=== PATIENT | female | born 1940 | race Caucasian/White ===

== ENCOUNTER 2016-10-16 05:45 | Inpatient (IN) | payer OTHER ==
[2016-11-13] MEDS ORDERED: CHLORHEXIDINE GLUC HIBICLENS 118 ML BTL TP ONE (06:00)
[2016-11-13] MEDS ORDERED: ceFAZolin 2 GM/DEXTROSE 100 ML IV ONE (06:00)
[2016-11-13] MEDS ORDERED: THROMBIN (RECOMBINANT) 5,000 UNIT VIAL TP ONE (06:41)
[2016-11-13] MEDS ORDERED: BUPIVACAINE 0.25% 30 ML SDV ONE (06:41)
[2016-11-13] MEDS ORDERED: BUPIVACAINE/EPI 0.25% 30 ML SDV ONE (06:42)
[2016-11-13] MEDS ORDERED: BACITRACIN 50,000 UNITS/10 ML SYR IRR ONE ×4 (06:42→11:41)
[2016-11-13] MEDS ORDERED: LR 1,000 ML IV ONE (06:56)
[2016-11-13] MEDS ORDERED: LIDOCAINE 1% 5 ML SDV ID PRN (06:56)
[2016-11-13] MEDS ORDERED: PROPOFOL/EMULSION 500 MG/50 ML BOTTLE IV ONE (07:52)
[2016-11-13] MEDS ORDERED: REMIFENTANIL HCL 1 MG VIAL ONE (07:52)
[2016-11-13] MEDS ORDERED: MIDAZOLAM 2 MG/2 ML VIAL ONE (07:54)
[2016-11-13] MEDS ORDERED: LIDOCAINE 2% 100 MG/5 ML SYR IVP ONE (07:57)
[2016-11-13] MEDS ORDERED: fentaNYL 100 MCG/2 ML INJ IT ONE (08:00)
[2016-11-13] MEDS ORDERED: CITRATE DEXTROSE SOLN 500 ML BAG ONE (08:25)
[2016-11-13] MEDS ORDERED: morphINE PF 5 MG/10 ML INJ IT ONE (08:30)
[2016-11-13] MEDS ORDERED: THROMBIN (RECOMBINANT) 20,000 UNIT VIAL TP ONE ×3 (09:20→10:01)
[2016-11-13] MEDS ORDERED: ALBUMIN 5% 250 ML BOTTLE IV ONE ×2 (09:29→10:17)
[2016-11-13] MEDS ORDERED: PHENYLEPHRINE HCL 100 MCG/ML SYR ONE ×2 (09:43→11:48)
[2016-11-13] MEDS ORDERED: epHEDrine SULFATE 10 MG/ML SYR ONE ×2 (09:43→12:32)
[2016-11-13 09:52] LABS: % IMMATURE GRANULYOCYTES 0.4 % (0.0-1.1); ABSOLUTE IMMATURE GRANULOCYTES 0.04 10^3/uL (0.00-0.10); ADD DIFF? NO; ADD MORPH? NO; ADD SCAN? NO; ATYPICAL LYMPHOCYTE FLAG 0 (0-99); FRAGMENT RBC FLAG 10 (0-99); HEMATOCRIT 34.6 % (38.0-47.0); HEMOGLOBIN 11.6 g/dL (12.6-16.3); LEFT SHIFT FLG 0 (0-99); LIPEMIA HEMOLYSIS FLAG 80 (0-99); MEAN CELL HEMOGLOBIN 30.2 pg (27.9-34.1); MEAN CELL HEMOGLOBIN CONCENTR. 33.5 g/dL (32.4-36.7); MEAN CELL VOLUME 90.1 fL (81.5-99.8); MEAN PLATELET VOLUME 9.6 fL (8.7-11.7); PLATELET CLUMPS FLAG 0 (0-99); PLATELET COUNT 250 10^3/uL (150-400); RED BLOOD CELL COUNT 3.84 10^6/uL (4.18-5.33); RED CELL DISTRIBUTION WIDTH 13.8 % (11.5-15.2)
[2016-11-13] MEDS ORDERED: VASOPRESSIN 20 UNIT/ML VIAL ONE (10:35)
[2016-11-13] MEDS ORDERED: morphINE PF 5 MG/10 ML INJ ONE (11:27)
[2016-11-13] MEDS ORDERED: fentaNYL 100 MCG/2 ML INJ ONE ×2 (11:28→12:20)
[2016-11-13] MEDS ORDERED: SKIN ADHESIVE (DERMABOND) 1 EACH TP ONE (12:11)
[2016-11-13] MEDS ORDERED: ONDANSETRON 4 MG/2 ML VIAL ONE (12:14)
[2016-11-13] MEDS ORDERED: DEXAMETHASONE 4 MG/ML VIAL ONE (12:14)
[2016-11-13] MEDS ORDERED: FLUTICASONE NASAL 120 SPRAYS/16 GM MDI EACHNARE PRN (12:21)
[2016-11-13] MEDS ORDERED: ALBUTEROL 60 PUFFS/8 GM MDI IH PRN (12:21)
[2016-11-13] MEDS ORDERED: MAGNESIUM HYDROXIDE 30 ML UDCUP PO PRN (12:24)
[2016-11-13] MEDS ORDERED: DIAZEPAM 10 MG/2 ML SYR IVP PRN (12:24)
[2016-11-13] MEDS ORDERED: NALOXONE HCL 0.4 MG/ML INJ IVP PRN ×2 (12:24→15:03)
[2016-11-13] MEDS ORDERED: LACTULOSE 20 GM/30 ML UDCUP PO PRN (12:24)
[2016-11-13] MEDS ORDERED: ONDANSETRON 4 MG/2 ML VIAL IVP PRN (12:24)
[2016-11-13] MEDS ORDERED: DIAZEPAM 5 MG TAB PO PRN (12:24)
[2016-11-13] MEDS ORDERED: BISACODYL 10 MG SUPP PR PRN (12:24)
[2016-11-13] MEDS ORDERED: HYDROCODONE/APAP 10/325 TAB PO PRN (12:24)
[2016-11-13] MEDS ORDERED: HYDROmorphONE/DILAUDID 6 MG/30 ML PCA IV PRN (12:24)
[2016-11-13] MEDS ORDERED: HYDROmorphONE/DILAUDID 1 MG/ML SYR IVP PRN (12:24)
[2016-11-13] MEDS ORDERED: ONDANSETRON DISINTEGRATING 4 MG TAB PO PRN (12:24)
--- NOTE | 2016-11-13 12:36 | POSTOPPROG ---
Post Op Note Date of Operation: 11/13/16 Surgeon: Trae Lozano Ice Cream Freezer Helper: Buster Anesthesiologist: Aleshia Anesthesia: GET(General Endotracheal) Pre-op Diagnosis: lumbar stenosis Post-op Diagnosis: same Indication: low back pain Procedure: hardware removal L3-S1, L1-4 fusion, L2/3 TLIF Findings: DJD/stenosis Inf/Abcess present in the surg proc area at time of surgery?: No EBL: 500-1000 (1200 ml EBL) Complications: thin dura right L2/3 Drains: Junior Dahl
--- NOTE | 2016-11-13 12:38 | SOAPPROG ---
SOAP Progress Note Assessment/Plan: Assessment: 75yo F sp L1-4 fusion with L2/3 TLIF, hardware removal L3-S1 Plan: to ICU for post op hypotension CT abd/pelvis to evaluate for retroperitoneal hemorrhage follow hg/hct hob flat with bed rest for til tomorrow am please call with neuro changes 11/13/16 12:37 Subjective: + back pain, no leg pain Objective: Microbiology 11/13/16 09:06 Gram Stain - Final Other - Eswab 11/13/16 09:06 Gram Stain - Final Other - Eswab Laboratory Results 11/13/16 09:40 somnolent PERRL, no facial droop TAWANNA x 4 ICD10 Worksheet Patient Problems: Problems Problem Status Onset Fusion of lumbar spine Acute Diabetes Acute H/O cervical spinal arthrodesis Acute Status post spinal arthrodesis Acute - ICD10 Problem Qualifiers (1) Fusion of lumbar spine
--- NOTE | 2016-11-13 13:12 | GOP ---
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 Critical spinal stenosis. Intractable left lower extremity radiculopathy and neurogenic claudication. Fail ed conservative care. High risk surgical candidate given age of 75 years, comorbidities, and requir ed surgical intervention. 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 Critica l spinal stenosis. Intractable left lower extremity radiculopathy and neurogenic claudication. Rakesh led conservative care. High risk surgical candidate given age of 75 years, comorbidities, and requi red surgical intervention. PROCEDURE PERFORMED: Removal of posterior segmental (pedicle screw) fixation from L3 through S1. R e-instrumentation from L1 through L4 with posterior segmental (pedicle screw and Axle device) fixati on. L1 through L4 posterolateral fusion with local autograft, bone morphogenic protein, and morseli zed allograft. L2-3 posterior/transforaminal lumbar interbody fusion with 2 structural PEEK interbo dy spacers, local autograft, and bone morphogenic protein. Use of intraoperative microscopy, fluoro scopy, and computer volumetric stereotactic navigation with intraoperative neurophysiologic testing. Repair of cerebrospinal fluid leak at L2-3 on the right, requiring extension of hemilaminectomy/he milaminotomy. FINDINGS: DESCRIPTION OF PROCEDURE: After informed consent was obtained, the patient was taken to the operati ng room, placed in the prone position. The lumbosacral area was prepped and draped in a sterile fas hion. After fluoroscopic localization of the correct levels, the subcutaneous and intramuscular tis sues were infiltrated with local anesthesia. A midline linear incision was then created from approx imately L2 through S1. This was carried down to the fascial layer, which was then incised using the monopolar electrocautery and carried in the subfascial plane along the spinous processes and lamina bilaterally. Intraoperative fluoroscopy again utilized to verify the correct levels. The prior in strumentation was identified, and the patient had very rigid fascia, soft tissues, and muscles. It was very difficult to achieve the lateral access required for the lateral to medial angle that the s crews had been placed in order to remove the locking caps, rods, and the pedicle screws, but eventua lly this was performed. It required more lateral dissection than normal, and there was a fair amoun t of bleeding out laterally. The anesthesiologist confirmed that the patient was stable, and there was no indication of a great vessel injury out laterally. After removal of the pedicle screws, rods , and locking caps, the microscope was brought in, and under high-power microscopic visualization, a right-sided L2-3 far lateral transfacet transpedicular decompression was performed with complete un harini of the facet joint and neural foramen at L2 and L3. A central canal decompression was also performed by angling the microscope across the midline. There was very severe stenosis, and there w as also an extensive amount of scar tissue that was more than expected, given the L3-S1 fusion prior , but the incision had extended up this high, so they clearly exposed this area. The dura was very thin over the L2-3 area, and I did see some leakage of CSF, a edgar durotomy did not occur. A singl e 4-0 Nurolon suture was placed, followed by DuraGen, and I think I got a good seal. Following this , the [employer] neuronavigational system was brought in, and using computer volumetrics and [employer] ic navigation, pedicle screws were placed at L2 and L3. The bone was both soft and brittle, and the L3 screw on the right broke out laterally. I was able to get a decent screw deeper down and left i t in place. I decided that it was in the patient's best interest to instrument down to L4 and reinf orce the fusion, but the screw broke out laterally at L4 as well. I was able to get screws down to L4 on the left with good purchase. The L2 screws were also very small and not super strong, so I re -evaluated the MRI, and there was some evidence of degeneration at that level, and the high likeliho od of adjacent level degeneration and further requirement for surgery, and given the patient's bone quality and likely future surgery, I felt that it was in her best interests to extend it up to L1 bu t not do a decompression there, and use that for a posterolateral fusion at L1-2. The exposure was carried up to there in a subperiosteal fashion and screws were placed bilaterally at L1, L2, L3, and on the left at L4. Rods were then placed and secured across the L2-3 interspace with a slight amou nt of distraction during which time a complete L2-3 diskectomy was performed with preparation of the endplates and placement of 2 structural PEEK interbody spacers, local autograft, and bone morphogen ic protein for L2-3 posterior/transforaminal lumbar interbody fusion. Following this, the wound was copiously irrigated with antibiotic irrigation and meticulous hemostasis was achieved, even though she was very oozy throughout the case from all the scar tissue and requirement for removal of the pr ior instrumentation and bone. The remaining lamina and facet joints were then extensively decortica margo at L1, L2, L3, and L4 for an L1 through L4 posterolateral fusion on the left, with an L1-2 poste rolateral fusion on the right as well, and L3-4 on the right with the residual local autograft bone morphogenic protein and morselized allograft. 200 mcg of Duramorph were injected intrathecally at t he L4-5 level through scar tissue, which was then coagulated with the bipolar cautery. Following th is, an Axle device was placed at the L1-2 level in order to hopefully prevent hardware failure and a nonunion, given the patient's weak bone screw interface and cracked pedicles. I did not think an A xle was needed at L2-3, given the interbody fusion and extension at L4 on the left. A drain was the n placed. The subcutaneous and intramuscular tissues were re-infiltrated with local anesthesia, and the wound was closed in a layered fashion using interrupted Vicryl sutures followed by Steri-Strips on the skin. DISPOSITION: The patient is currently in the process of being repositioned for extubation. /[id number]/MODL
[2016-11-13 13:23] LABS: % IMMATURE GRANULYOCYTES 1.7 % (0.0-1.1); ABSOLUTE IMMATURE GRANULOCYTES 0.19 10^3/uL (0.00-0.10); ADD DIFF? NO; ADD MORPH? NO; ADD SCAN? NO; ATYPICAL LYMPHOCYTE FLAG 20 (0-99); FRAGMENT RBC FLAG 0 (0-99); HEMATOCRIT 22.6 % (38.0-47.0); HEMOGLOBIN 7.4 g/dL (12.6-16.3); LEFT SHIFT FLG 40 (0-99); LIPEMIA HEMOLYSIS FLAG 80 (0-99); MEAN CELL HEMOGLOBIN 29.1 pg (27.9-34.1); MEAN CELL HEMOGLOBIN CONCENTR. 32.7 g/dL (32.4-36.7); MEAN PLATELET VOLUME 9.5 fL (8.7-11.7); PLATELET CLUMPS FLAG 0 (0-99); PLATELET COUNT 128 10^3/uL (150-400); RED BLOOD CELL COUNT 2.54 10^6/uL (4.18-5.33); RED CELL DISTRIBUTION WIDTH 14.5 % (11.5-15.2)
[2016-11-13 13:29] LABS: INR 1.47 (0.83-1.16); PROTIME(PATIENT) 17.8 SEC (12.0-15.0)
[2016-11-13 13:30] LABS: APTT 28.5 SEC (23.0-38.0)
[2016-11-13 13:35] LABS: ANION GAP 9 mEq/L (8-16); CALCIUM 7.1 mg/dL (8.5-10.4); CARBON DIOXIDE 21 mEq/l (22-31); CHLORIDE 109 mEq/L (97-110); CREATININE 0.5 mg/dL (0.6-1.0); GLOMERULAR FILTRATION RATE > 60; GLUCOSE 277 mg/dL (70-100); POTASSIUM 4.2 mEq/L (3.5-5.2); SODIUM 139 mEq/L (134-144)
[2016-11-13] MEDS: NS W/ 20 KCl/L 1,000 ML IV SCH (14:22)
[2016-11-13] MEDS: TAPENTADOL HCL 50 MG TAB PO PRN ×2 (14:42→18:42)
[2016-11-13] MEDS ORDERED: morphINE PCA 30 MG/30 ML PCA IV PRN (15:03)
[2016-11-13] MEDS: GABAPENTIN 300 MG CAP PO SCH ×2 (15:16→20:56)
[2016-11-13] MEDS: POLYETHYLENE GLYCOL 3350 17 GM PKT PO SCH ×2 (15:16→20:56)
--- NOTE | 2016-11-13 15:48 | GCON ---
[f rep st] CONSULTATION SLD INCLUSION TEACHER CONSULTATION. REASON FOR ADMISSION: Status post L1 through L4 fusion with a L2-3 TLIF and hardware removal L3-S1, also hypotension. HISTORY OF PRESENT ILLNESS: The patient is an extremely pleasant 75-year-old white female with a [facility] medical history of diabetes. She presents postoperatively after spine surgery. This was complic ated by blood loss as well as hypovolemia and shock. She was transfused and given IV fluids and was markedly improved. In discussion with the patient, she states that with exception of back pain she is doing quite well. She denies any chest pain, pleuritic-type chest pain or angina equivalent. N o fever or night sweats. No nausea, vomiting, or diarrhea. PAST MEDICAL HISTORY: Again, significant for diabetes. PAST SURGICAL HISTORY: She has had in 2009 a L3-S1 fusion and a C4-C7 fusion in 2013. ALLERGIES: Codeine, doxycycline, erythromycin, fentanyl. PHYSICAL EXAM: VITAL SIGNS: Blood pressure is 76/52, this has improved to 112/76. Pulse is 86, re spirations 20, temperature is 36.9, oxygen saturation 99% on 8 L. GENERAL: She is a mildly overwei ght but extremely pleasant 75-year-old white female who is resting comfortably in moderate back pain . HEENT: Eyes: KING, EOMI. Throat shows no erythema or tonsillar hypertrophy. NECK: Supple. T here is no cervical adenopathy. HEART: Regular rate and rhythm without murmurs, rubs, or gallops. LUNGS: Clear to auscultation. No wheeze or rhonchi. ABDOMEN: Soft, nontender. Bowel sounds are present. EXTREMITIES: No clubbing, cyanosis, or edema. LABORATORIES: White count is 11.3, hemoglobin 7.4, hematocrit 22, platelet count is 128, INR 1.47. Sodium 139, potassium 4.2, chloride 109, CO2 is 21, BUN 10, creatinine 0.5, glucose is 277. IMPRESSION: 1. Status post L1-L4 fusion with a L2-L3 TLIF hardware removal L3-S1. 2. Hypotension, this is hypovolemic. This has improved with hydration and transfusion. 3. History of diabetes. 4. Pain. Moderately controlled. RECOMMENDATION: 1. Close cardiovascular monitoring. 2. Follow H and H closely. 3. Await CT abdomen and pelvis results. 4. Adequate pain control. 5. Aggressive blood sugar control. /[id number]/MODL
[2016-11-13] MEDS: diphenhydrAMINE 25 MG CAP PO PRN (16:05)
[2016-11-13 16:20] LABS: HEMATOCRIT 28.2 % (38.0-47.0); HEMOGLOBIN 9.6 g/dL (12.6-16.3)
[2016-11-13] MEDS ORDERED: FAMOTIDINE 20 MG/NACL/50 ML BAG IV ONE (18:05)
[2016-11-13] MEDS: FAMOTIDINE 20 MG/NACL 50 ML IV SCH (18:06)
[2016-11-13] MEDS: DONEPEZIL HCL 5 MG TAB PO SCH (20:37)
[2016-11-13] MEDS: CYCLOSPORINE 0.05% 1 EACH BOX EACHEYE SCH (20:37)
[2016-11-13] MEDS: INSULIN 70/30 HUMAN 100 UNITS/ML SYR SC SCH (20:47)
[2016-11-13] MEDS: SENNOSIDES/DOCUSATE SODIUM TAB PO SCH (20:51)
[2016-11-13] MEDS ORDERED: morphINE SR 15 MG TAB PO SCH (21:00)
[2016-11-14 04:54] LABS: % IMMATURE GRANULYOCYTES 0.5 % (0.0-1.1); ABSOLUTE IMMATURE GRANULOCYTES 0.07 10^3/uL (0.00-0.10); ABSOLUTE NRBC COUNT 0.02 10^3/uL (0-0.01); ADD DIFF? NO; ADD MORPH? NO; ADD SCAN? NO; ATYPICAL LYMPHOCYTE FLAG 0 (0-99); FRAGMENT RBC FLAG 0 (0-99); HEMATOCRIT 27.8 % (38.0-47.0); LEFT SHIFT FLG 30 (0-99); LIPEMIA HEMOLYSIS FLAG 80 (0-99); MEAN CELL HEMOGLOBIN 29.6 pg (27.9-34.1); MEAN CELL HEMOGLOBIN CONCENTR. 32.4 g/dL (32.4-36.7); MEAN CELL VOLUME 91.4 fL (81.5-99.8); MEAN PLATELET VOLUME 10.2 fL (8.7-11.7); NRBC-AUTO% 0.1 % (0.0-0.2); PLATELET CLUMPS FLAG 0 (0-99); PLATELET COUNT 128 10^3/uL (150-400); RED BLOOD CELL COUNT 3.04 10^6/uL (4.18-5.33); RED CELL DISTRIBUTION WIDTH 14.6 % (11.5-15.2)
[2016-11-14 05:27] LABS: ANION GAP 9 mEq/L (8-16); CALCIUM 6.9 mg/dL (8.5-10.4); CARBON DIOXIDE 18 mEq/l (22-31); CHLORIDE 111 mEq/L (97-110); CREATININE 1.2 mg/dL (0.6-1.0); GLOMERULAR FILTRATION RATE 44; GLUCOSE 115 mg/dL (70-100); POTASSIUM 4.6 mEq/L (3.5-5.2); SODIUM 138 mEq/L (134-144)
[2016-11-14] MEDS: VENLAFAXINE XR 75 MG CAP PO SCH (09:11)
[2016-11-14] MEDS: diphenhydrAMINE 25 MG CAP PO PRN (09:11)
[2016-11-14] MEDS: ALLOPURINOL 100 MG TAB PO SCH (09:11)
[2016-11-14] MEDS: ENOXAPARIN 40 MG/0.4 ML SYR SC SCH (09:11)
[2016-11-14] MEDS: GABAPENTIN 300 MG CAP PO SCH ×3 (09:12→21:28)
[2016-11-14] MEDS: SENNOSIDES/DOCUSATE SODIUM TAB PO SCH ×2 (09:12→21:28)
[2016-11-14] MEDS: ATORVASTATIN CALCIUM 20 MG TAB PO SCH (09:12)
[2016-11-14] MEDS: PANTOPRAZOLE SODIUM 40 MG TAB PO SCH (09:12)
[2016-11-14] MEDS: POLYETHYLENE GLYCOL 3350 17 GM PKT PO SCH ×3 (09:12→21:29)
[2016-11-14] MEDS: CYCLOSPORINE 0.05% 1 EACH BOX EACHEYE SCH ×2 (09:13→21:32)
[2016-11-14] MEDS: FAMOTIDINE 20 MG/NACL 50 ML IV SCH (09:13)
--- NOTE | 2016-11-14 09:29 | SOAPPROG ---
SOAP Progress Note Assessment/Plan: Assessment: 75 yo female POD #1. HOB flat overnight due to thin dura. OK to sit HOB this AM Continue GLORIA to NO Suction Plan: HOB up today Advance activity as tolerated Continue GLORIA Discussed with Dr. Hicks 11/14/16 09:26 Subjective: asleep, wakes easily and reports good paint control. Objective: Vital Signs Temp Pulse Resp BP Pulse Ox 36.7 C 104 H 12 115/59 L 94 11/13/16 20:00 11/14/16 06:00 11/14/16 06:00 11/14/16 06:00 11/14/16 06:00 Microbiology 11/13/16 09:06 Gram Stain - Final Other - Eswab 11/13/16 09:06 Gram Stain - Final Other - Eswab Laboratory Results 11/14/16 04:25 11/14/16 04:25 11/13/16 11/14/16 11/15/16 05:59 05:59 05:59 Intake Total 6675 Output Total 2325 Balance 4350 PT 17.8 SEC (12.0-15.0) H 11/13/16 13:06 INR 1.47 (0.83-1.16) H 11/13/16 13:06 Neuro: GIVENS, Sens +LT GLORIA: 200ml ICD10 Worksheet Patient Problems: Problems Problem Status Onset Fusion of lumbar spine Acute Diabetes Acute H/O cervical spinal arthrodesis Acute Status post spinal arthrodesis Acute
[2016-11-14] MEDS: INSULIN 70/30 HUMAN 100 UNITS/ML SYR SC SCH ×2 (09:55→21:57)
[2016-11-14] MEDS ORDERED: NALOXONE HCL 0.4 MG/ML INJ IVP PRN (10:57)
[2016-11-14] MEDS ORDERED: HYDROmorphONE/DILAUDID 6 MG/30 ML PCA IV PRN (10:57)
[2016-11-14] MEDS: HYDROCODONE/APAP 10/325 TAB PO PRN ×2 (12:05→16:05)
--- NOTE | 2016-11-14 12:13 | PDINTPN ---
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 Subjective: Resting comfortably Objective: Vital Signs Temp Pulse Resp BP Pulse Ox 36.7 C 104 H 12 115/59 L 94 11/13/16 20:00 11/14/16 06:00 11/14/16 06:00 11/14/16 06:00 11/14/16 06:00 Microbiology 11/13/16 09:06 Gram Stain - Final Other - Eswab 11/13/16 09:06 Gram Stain - Final Other - Eswab Laboratory Results 11/14/16 04:25 11/14/16 04:25 11/13/16 11/14/16 11/15/16 05:59 05:59 05:59 Intake Total 6675 Output Total 2325 Balance 4350 PT 17.8 SEC (12.0-15.0) H 11/13/16 13:06 INR 1.47 (0.83-1.16) H 11/13/16 13:06 Physical Exam - Physical Exam General Appearance: alert, no apparent distress EENT: PERRL/EOMI, normal ENT inspection Neck: non-tender, full range of motion, supple, normal inspection Respiratory: chest non-tender, lungs clear, normal breath sounds Cardiac/Chest: normal peripheral pulses, regular rate, rhythm Peripheral Pulses: 2+: carotid (R), carotid (L), femoral (R), femoral (L), dorsalis-pedis (R), dorsalis-pedis (L) Abdomen: normal bowel sounds, non-tender, soft Pelvic Exam: deferred Rectal: deferred Skin: normal color, warm/dry ICD10 Worksheet Patient Problems: Problems Problem Status Onset Fusion of lumbar spine Acute Diabetes Acute H/O cervical spinal arthrodesis Acute Status post spinal arthrodesis Acute
[2016-11-14] MEDS: METHOCARBAMOL 750 MG TAB PO PRN (16:05)
[2016-11-14] MEDS: DONEPEZIL HCL 5 MG TAB PO SCH (21:27)
[2016-11-14] MEDS: NS W/ 20 KCl/L 1,000 ML IV SCH (21:27)
[2016-11-14] MEDS: morphINE SR 15 MG TAB PO SCH (21:28)
[2016-11-15] MEDS: FAMOTIDINE 20 MG/NACL 50 ML IV SCH ×2 (02:11→11:05)
[2016-11-15] MEDS: HYDROCODONE/APAP 10/325 TAB PO PRN ×2 (04:24→14:52)
[2016-11-15] MEDS: INSULIN 70/30 HUMAN 100 UNITS/ML SYR SC SCH ×2 (09:12→21:47)
[2016-11-15] MEDS: ACETAMINOPHEN 325 MG TAB PO PRN (09:12)
[2016-11-15] MEDS: VENLAFAXINE XR 75 MG CAP PO SCH (09:13)
[2016-11-15] MEDS: GABAPENTIN 300 MG CAP PO SCH ×3 (09:13→21:37)
[2016-11-15] MEDS: ALLOPURINOL 100 MG TAB PO SCH (09:13)
[2016-11-15] MEDS: ATORVASTATIN CALCIUM 20 MG TAB PO SCH (09:14)
[2016-11-15] MEDS: PANTOPRAZOLE SODIUM 40 MG TAB PO SCH (09:14)
[2016-11-15] MEDS: morphINE SR 15 MG TAB PO SCH ×2 (09:14→21:35)
[2016-11-15] MEDS: ENOXAPARIN 40 MG/0.4 ML SYR SC SCH (09:14)
[2016-11-15] MEDS: SENNOSIDES/DOCUSATE SODIUM TAB PO SCH ×2 (09:14→21:37)
[2016-11-15] MEDS: POLYETHYLENE GLYCOL 3350 17 GM PKT PO SCH ×3 (09:20→21:38)
[2016-11-15] MEDS: CYCLOSPORINE 0.05% 1 EACH BOX EACHEYE SCH ×2 (09:21→21:45)
[2016-11-15] MEDS: FAMOTIDINE 20 MG TAB PO SCH ×2 (09:22→21:38)
--- NOTE | 2016-11-15 13:22 | NEUSURGPN ---
Assessment/Plan: Assessment: 75 yo female POD #3 NO headaches with raise of HOB Has productive cough this am Had some confusion with narcotics now clearing Continue GLORIA to NO Suction- will remove in am tomorrow Plan: Advance activity as tolerated- encourage IS and OOB CXR ordered due to productive cough Continue GLORIA PT/OT DVT: TEDs, SCDs, Discussed with Dr. Hicks 11/14/16 09:26 Subjective: Patient has severe back pain this morning spasms mostly. Has productive cough. Denies cp, sob, dyspnea. Objective: Patient resting in bed, VSS Alert and oriented Productive cough BLE 5/= Incision c/d/i-dressed GLORIA with 135 output in last 24- no suction-serosang Catheter Insertion Date: 11/13/16 - Physician Discussed Patient with : [facility] Physical Exam - Vitals, I&O, Labs I and O 11/14/16 11/15/16 11/16/16 05:59 05:59 05:59 Intake Total 6675 1650 Output Total 2325 885 100 Balance 4350 765 -100 Weight 65.317 kg Intake: Oral (ml) 1100 500 IV Intake (ml) 3300 550 IV Infused (ml) 1196 600 NS W/ 20 KCl/L 1,000 ml @ 1196 600 75 mls/hr IV CONT SYLVIA Rx #:[id number] Autologous Blood (ml) 540 Fresh Frozen Plasma (ml) 289 Packed Red Blood Cells ( 250 ml) Output: Urine (ml) 925 850 Catheter 925 850 Estimated Blood Loss (ml) 1200 Wound Drainage (ml) 200 35 100 Back Junior Dahl 200 35 100 Other: Intake Quantity Yes Sufficient Output Comment Catheter Straight Cath Number of Voids Incontinence 1 Bladder Scan Volume (ml) Catheter 600 Microbiology 11/13/16 09:06 Gram Stain - Final Other - Eswab 11/13/16 09:06 Gram Stain - Final Other - Eswab Vital Signs Temp Pulse Resp BP Pulse Ox 36.9 C 89 16 91/53 L 94 11/15/16 12:00 11/15/16 12:00 11/15/16 12:00 11/15/16 12:00 11/15/16 12:00 Laboratory Results 11/14/16 04:25 11/14/16 04:25 ICD10 Worksheet Patient Problems: Problems Problem Status Onset Fusion of lumbar spine Acute Diabetes Acute H/O cervical spinal arthrodesis Acute Status post spinal arthrodesis Acute
[2016-11-15] MEDS: METHOCARBAMOL 750 MG TAB PO PRN (14:52)
[2016-11-15] MEDS: DONEPEZIL HCL 5 MG TAB PO SCH (21:37)
[2016-11-16 04:15] LABS: COLOR YELLOW; LEUKOCYTE ESTERASE,URINE NEGATIVE (NEGATIVE); NITRITE,URINE NEGATIVE (NEGATIVE)
[2016-11-16] MEDS: ACETAMINOPHEN 325 MG TAB PO PRN (08:14)
[2016-11-16] MEDS: SENNOSIDES/DOCUSATE SODIUM TAB PO SCH ×2 (08:15→20:24)
[2016-11-16] MEDS: morphINE SR 15 MG TAB PO SCH ×2 (08:15→20:23)
[2016-11-16] MEDS: VENLAFAXINE XR 75 MG CAP PO SCH (08:15)
[2016-11-16] MEDS: GABAPENTIN 300 MG CAP PO SCH ×3 (08:15→21:52)
[2016-11-16] MEDS: PANTOPRAZOLE SODIUM 40 MG TAB PO SCH (08:15)
[2016-11-16] MEDS: ATORVASTATIN CALCIUM 20 MG TAB PO SCH (08:16)
[2016-11-16] MEDS: POLYETHYLENE GLYCOL 3350 17 GM PKT PO SCH ×3 (08:16→21:53)
[2016-11-16] MEDS: ENOXAPARIN 40 MG/0.4 ML SYR SC SCH (08:16)
[2016-11-16] MEDS: FAMOTIDINE 20 MG TAB PO SCH ×2 (08:16→20:23)
[2016-11-16] MEDS: ALLOPURINOL 100 MG TAB PO SCH (08:16)
[2016-11-16] MEDS: INSULIN 70/30 HUMAN 100 UNITS/ML SYR SC SCH ×2 (09:29→20:25)
[2016-11-16] MEDS: CYCLOSPORINE 0.05% 1 EACH BOX EACHEYE SCH ×2 (09:30→20:29)
--- NOTE | 2016-11-16 14:42 | NEUSURGPN ---
Assessment/Plan: Assessment: 75 yo female POD #4 NO headaches with raise of HOB Has productive cough still- Negative CXR for Pneumonia Had some continued confusion this morning- will decrease narcotics Plan: Patient continues to be somewhat confused, waxes and wanes throughout day. Asked RN to minimize narcotics today. CXR ordered due to productive cough- Negative for pneumonia Continue GLORIA PT/OT-Patient needs to be out of bed! Has not really been out of bed at all. Needs encouragement to be up in chair, using IS, advancing activity DVT: TEDs, SCDs,Lovenox Discussed with Dr. Hicks 11/14/16 09:26 Subjective: Patient states legs "hurt", and back "hurts", having cough still but denies fever, chills, pleuritic chest pain. States she hasn't been out of bed much. No BM. Objective: NAD, VSS Alert to person, place, not to year when first asked, and seems confused on what is being asked Following commands PERRL, EOMI CN II-XII grossly intact Productive cough, normal work of breathing BLE 5/5= Incision c/d/i GLORIA to no suction- to be removed this am Catheter Insertion Date: 11/16/16 - Physician Discussed Patient with : [facility] Physical Exam - Vitals, I&O, Labs I and O 11/15/16 11/16/16 11/17/16 05:59 05:59 05:59 Intake Total 1650 750 350 Output Total 885 870 Balance 765 -120 350 Intake: Oral (ml) 500 750 350 IV Intake (ml) 550 IV Infused (ml) 600 NS W/ 20 KCl/L 1,000 ml @ 600 75 mls/hr IV CONT SYLVIA Rx #:[id number] Output: Urine (ml) 850 750 Catheter 850 750 Wound Drainage (ml) 35 120 Back Junior Dahl 35 120 Other: Intake Quantity Yes Sufficient Output Comment Catheter Straight Cath Number of Voids Incontinence 1 Bladder Scan Volume (ml) Catheter 600 550 Incontinence 233 Microbiology 11/13/16 09:06 Gram Stain - Final Other - Eswab 11/13/16 09:06 Gram Stain - Final Other - Eswab Vital Signs Temp Pulse Resp BP Pulse Ox 36.9 C 84 16 104/51 L 99 11/16/16 13:47 11/16/16 13:47 11/16/16 13:47 11/16/16 13:47 11/16/16 13:47 Laboratory Results 11/14/16 04:25 11/14/16 04:25 ICD10 Worksheet Patient Problems: Problems Problem Status Onset Fusion of lumbar spine Acute Diabetes Acute H/O cervical spinal arthrodesis Acute Status post spinal arthrodesis Acute
[2016-11-16] MEDS: DONEPEZIL HCL 5 MG TAB PO SCH (20:23)
[2016-11-17] MEDS: ACETAMINOPHEN 325 MG TAB PO PRN ×3 (00:22→16:07)
--- NOTE | 2016-11-17 08:15 | NEUSURGPN ---
Assessment/Plan: Assessment: 75 yo female POD #5 NO headaches with raise of HOB Has productive cough still- Negative CXR for Pneumonia Plan: Encourage patient OOB Continue GLORIA PT/OT-Patient needs to be out of bed! Has not really been out of bed at all. Needs encouragement to be up in chair, using IS, advancing activity DVT: TEDs, SCDs,Lovenox Discussed with Dr. Hicks Subjective: low back pain. Denies any leg pain, numbness, tingling or weakness. Objective: NAD A&Ox3 MAEx4. diffusely 5-/5 throughout with poor effort. Incision c/d/i Catheter Insertion Date: 11/16/16 - Physician Discussed Patient with DrMigdalia: [facility] Physical Exam - Vitals, I&O, Labs I and O 11/16/16 11/17/16 11/18/16 05:59 05:59 05:59 Intake Total 750 650 Output Total 870 650 Balance -120 0 Intake: Oral (ml) 750 650 Output: Urine (ml) 750 650 Catheter 750 650 Wound Drainage (ml) 120 Back Junior Dahl 120 Other: Number of Stools Catheter 1 Bladder Scan Volume (ml) Catheter 550 Incontinence 233 Microbiology 11/13/16 09:06 Gram Stain - Final Other - Eswab 11/13/16 09:06 Gram Stain - Final Other - Eswab Vital Signs Temp Pulse Resp BP Pulse Ox 36.6 C 75 14 99/50 L 99 11/17/16 07:41 11/17/16 07:41 11/17/16 07:41 11/17/16 07:41 11/17/16 07:41 Laboratory Results 11/14/16 04:25 11/14/16 04:25 ICD10 Worksheet Patient Problems: Problems Problem Status Onset Fusion of lumbar spine Acute Diabetes Acute H/O cervical spinal arthrodesis Acute Status post spinal arthrodesis Acute
[2016-11-17] MEDS: ATORVASTATIN CALCIUM 20 MG TAB PO SCH (09:39)
[2016-11-17] MEDS: INSULIN 70/30 HUMAN 100 UNITS/ML SYR SC SCH ×2 (09:39→20:06)
[2016-11-17] MEDS: PANTOPRAZOLE SODIUM 40 MG TAB PO SCH (09:39)
[2016-11-17] MEDS: FAMOTIDINE 20 MG TAB PO SCH ×2 (09:39→20:04)
[2016-11-17] MEDS: VENLAFAXINE XR 75 MG CAP PO SCH (09:39)
[2016-11-17] MEDS: ALLOPURINOL 100 MG TAB PO SCH (09:39)
[2016-11-17] MEDS: GABAPENTIN 300 MG CAP PO SCH ×3 (09:39→21:46)
[2016-11-17] MEDS: METHOCARBAMOL 750 MG TAB PO PRN ×2 (09:40→16:07)
[2016-11-17] MEDS: ENOXAPARIN 40 MG/0.4 ML SYR SC SCH (09:40)
[2016-11-17] MEDS: CYCLOSPORINE 0.05% 1 EACH BOX EACHEYE SCH ×2 (09:45→20:07)
[2016-11-17] MEDS: morphINE SR 15 MG TAB PO SCH (10:34)
[2016-11-17] MEDS: POLYETHYLENE GLYCOL 3350 17 GM PKT PO SCH ×3 (10:34→20:14)
[2016-11-17] MEDS: SENNOSIDES/DOCUSATE SODIUM TAB PO SCH ×2 (10:35→20:13)
[2016-11-17] MEDS: DONEPEZIL HCL 5 MG TAB PO SCH (20:04)
[2016-11-18] MEDS: ACETAMINOPHEN 325 MG TAB PO PRN ×2 (00:13→09:35)
[2016-11-18] MEDS: INSULIN 70/30 HUMAN 100 UNITS/ML SYR SC SCH ×2 (09:34→22:28)
[2016-11-18] MEDS: ENOXAPARIN 40 MG/0.4 ML SYR SC SCH (09:34)
[2016-11-18] MEDS: GABAPENTIN 300 MG CAP PO SCH ×3 (09:35→22:27)
[2016-11-18] MEDS: METHOCARBAMOL 750 MG TAB PO PRN ×3 (09:35→20:09)
[2016-11-18] MEDS: ALLOPURINOL 100 MG TAB PO SCH (09:35)
[2016-11-18] MEDS: ATORVASTATIN CALCIUM 20 MG TAB PO SCH (09:35)
[2016-11-18] MEDS: VENLAFAXINE XR 75 MG CAP PO SCH (09:35)
[2016-11-18] MEDS: FAMOTIDINE 20 MG TAB PO SCH ×2 (09:35→20:09)
[2016-11-18] MEDS: PANTOPRAZOLE SODIUM 40 MG TAB PO SCH (09:35)
[2016-11-18] MEDS: POLYETHYLENE GLYCOL 3350 17 GM PKT PO SCH ×3 (09:36→19:57)
[2016-11-18] MEDS: SENNOSIDES/DOCUSATE SODIUM TAB PO SCH ×2 (09:36→20:04)
[2016-11-18] MEDS: CYCLOSPORINE 0.05% 1 EACH BOX EACHEYE SCH ×2 (09:36→20:14)
--- NOTE | 2016-11-18 10:09 | SOAPPROG ---
SOAP Progress Note Assessment/Plan: Assessment: 75 yo female POD #5. Ongoing LBP limiting mobility productive cough. Last CXR on Confusion overnight. Pt is sensative to narcotics Plan: CXR repeat today. OOB and ambulating TID. Advance activity as tolerated Subjective: awake, alert, complains of pain "everywhere." Confusion overnight now resolved Objective: Vital Signs Temp Pulse Resp BP Pulse Ox 36.4 C 79 15 127/68 H 99 11/18/16 07:27 11/18/16 07:27 11/18/16 07:27 11/18/16 07:27 11/18/16 07:27 Microbiology 11/13/16 09:06 Gram Stain - Final Other - Eswab 11/13/16 09:06 Gram Stain - Final Other - Eswab Laboratory Results 11/14/16 04:25 11/14/16 04:25 11/17/16 11/18/16 11/19/16 05:59 05:59 05:59 Intake Total 650 Output Total 650 1000 Balance 0 -1000 PT 17.8 SEC (12.0-15.0) H 11/13/16 13:06 INR 1.47 (0.83-1.16) H 11/13/16 13:06 Neuro: oriented x4 GIVENS, Sens + LT Dressing: CDI no GLORIA ICD10 Worksheet Patient Problems: Problems Problem Status Onset Fusion of lumbar spine Acute Diabetes Acute H/O cervical spinal arthrodesis Acute Status post spinal arthrodesis Acute
[2016-11-18] MEDS ORDERED: HYDROmorphONE/DILAUDID 2 MG TAB PO PRN (10:15)
[2016-11-18] MEDS: ACETAMINOPHEN 500 MG TAB PO SCH ×2 (14:04→22:26)
[2016-11-18] MEDS ORDERED: D50W 25 GM/50 ML SYR IVP PRN (16:26)
[2016-11-18 16:58] LABS: % IMMATURE GRANULYOCYTES 1.6 % (0.0-1.1); ABSOLUTE IMMATURE GRANULOCYTES 0.14 10^3/uL (0.00-0.10); ABSOLUTE NRBC COUNT 0.13 10^3/uL (0-0.01); ADD DIFF? NO; ADD MORPH? YES; ADD SCAN? NO; ATYPICAL LYMPHOCYTE FLAG 40 (0-99); FRAGMENT RBC FLAG 0 (0-99); HEMOGLOBIN 8.3 g/dL (12.6-16.3); LEFT SHIFT FLG 30 (0-99); LIPEMIA HEMOLYSIS FLAG 80 (0-99); MEAN CELL HEMOGLOBIN 29.4 pg (27.9-34.1); MEAN CELL HEMOGLOBIN CONCENTR. 33.2 g/dL (32.4-36.7); MEAN CELL VOLUME 88.7 fL (81.5-99.8); MEAN PLATELET VOLUME 10.1 fL (8.7-11.7); PLATELET CLUMPS FLAG 0 (0-99); PLATELET COUNT 206 10^3/uL (150-400); RED BLOOD CELL COUNT 2.82 10^6/uL (4.18-5.33); RED CELL DISTRIBUTION WIDTH 14.2 % (11.5-15.2)
[2016-11-18 16:59] LABS: NRBC-AUTO% 1.5 % (0.0-0.2)
--- NOTE | 2016-11-18 17:34 | GCON ---
[f rep st] CONSULTATION DATE OF CONSULTATION: 11/18/2016 REFERRING PHYSICIAN: Trae Lozano MD REASON FOR CONSULTATION: I was asked by Dr. Lozano to see this patient in regard to cough an d abnormal chest x-ray. HISTORY OF PRESENT ILLNESS: This is a 75-year-old female who is now postoperative day #5 status pos t lumbar procedure. She tells me that she has been coughing since the surgery. It is productive of sputum. She hurts all over. It is unclear whether this is myalgias or pain from her lumbar surger y. She had a T-max of 37.9 on the 18th, which was 2 days postoperative. She has not had any wheezi ng, does not feel short of breath. She has no underlying lung disease. Has never had a pneumonia b efore. Does not have COPD, no asthma. She received the influenza vaccine this year. Her main comp laint is her back pain. PAST MEDICAL/SURGICAL HISTORY: 1. Diabetes mellitus, on insulin. 2. History of low back fusion, status post recent revision. MEDICATIONS: Home medications include Aricept, gabapentin, omeprazole, Effexor, albuterol, cyclospo rine, NovoLog, fluticasone, insulin, allopurinol. ALLERGIES: Codeine, doxycycline, erythromycin, fentanyl, nystatin, quinine, tetracycline. FAMILY HISTORY: Diabetes. SOCIAL HISTORY: She quit drinking about 20 years ago. She quit smoking tobacco in her 30s. REVIEW OF SYSTEMS: Ten-point review of systems is conducted and is negative, except per HPI. PHYSICAL EXAM: VITAL SIGNS: Blood pressure is 105/53, heart rate is 81, respiration rate is 15, sa tting 95% on 3 L, temperature is 37.1. GENERAL: The patient is a pleasant female who is lying on h er side, appears mildly uncomfortable, otherwise in no acute distress. HEENT: Shows her mucous mem branes to be moist. CARDIOVASCULAR: Regular rate and rhythm. No murmurs, rubs, or gallops. PULMO NARY: Shows her lungs to be clear to auscultation bilaterally. She is not in any respiratory distr ess. ABDOMEN: Soft, nontender, nondistended. SKIN: No rash. : Thornton in place. NEUROLOGIC: She is alert and oriented x3. She is nonfocal. PSYCHIATRIC: Normal mood and affect. LABS: Reviewed her labs, last were drawn on the . Her white count was 14.28, this was 77% neut rophils. Platelets are 128. Recent blood sugars are noted. Urinalysis on the showed trace ket ones. DATA: 1. I reviewed her chart. 2. I personally viewed and interpreted her chest x-ray. This shows predominant interstitial markin gs, which are new since the . IMPRESSION AND PLAN: A 75-year-old female with cough and interstitial infiltrates on her chest x-ra y. 1. Pulmonary: Suspect this may be influenza. This has been ordered. I have also ordered a full s et of labs. If this is negative, will treat her for a bacterial bronchitis versus pneumonitis. Wou ld order additional testing at that point, including Legionella sputum culture. She is not in any r espiratory distress at this point. 2. Diabetes mellitus type 2: She had some fasting borderline hypoglycemia this morning. I note th at she is on 70/30 insulin. I have decreased her 70/30 dose and will add some sliding scale lispro to give her better coverage throughout the day. 3. Recent lumbar revision: Per Neurosurgery. Thank you for involving Hospital Medicine in the care of this patient. We will continue to follow w reina you. /[id number]/MODL
[2016-11-18 17:46] LABS: MACROCYTES 1+; MICROCYTES 1+; PLATELET ESTIMATE ADEQUATE (ADEQ); POLYCHROMASIA 1+
[2016-11-18] MEDS: INSULIN LISPRO 100 UNIT/ML SC SCH (18:04)
[2016-11-18 18:32] LABS: ANION GAP 6 mEq/L (8-16); CALCIUM 8.6 mg/dL (8.5-10.4); CARBON DIOXIDE 30 mEq/l (22-31); CHLORIDE 96 mEq/L (97-110); CREATININE 0.5 mg/dL (0.6-1.0); GLOMERULAR FILTRATION RATE > 60; GLUCOSE 174 mg/dL (70-100); POTASSIUM 3.9 mEq/L (3.5-5.2); SODIUM 132 mEq/L (134-144)
[2016-11-18] MEDS: DONEPEZIL HCL 5 MG TAB PO SCH (20:09)
[2016-11-18] MEDS: AZITHROMYCIN 250 MG TAB PO SCH (20:09)
[2016-11-19] MEDS: METHOCARBAMOL 750 MG TAB PO PRN ×2 (03:43→12:59)
--- NOTE | 2016-11-19 07:37 | SOAPPROG ---
SOAP Progress Note Assessment/Plan: Assessment: 75 yo female POD #6. Ongoing LBP limiting mobility productive cough - better today per pt. Hospitalists assisting with this issue now. Flu serology negative Pt feels cough is better today Neuro stable consider removing sherman Plan: Encourage out of bed and ambulation with assist will discuss Sherman with Dr. Lozano Subjective: lying in bed, comfortable, but complains of "stiffness" She feels like her cough is improved today Objective: Vital Signs Temp Pulse Resp BP Pulse Ox 37.2 C 74 16 114/64 97 11/19/16 00:00 11/19/16 00:00 11/19/16 00:00 11/19/16 00:00 11/19/16 00:00 Microbiology 11/13/16 09:06 Gram Stain - Final Other - Eswab 11/13/16 09:06 Gram Stain - Final Other - Eswab Laboratory Results 11/18/16 16:45 11/18/16 17:30 11/18/16 11/19/16 11/20/16 05:59 05:59 05:59 Intake Total 450 Output Total 1000 1950 Balance -1000 -1500 PT 17.8 SEC (12.0-15.0) H 11/13/16 13:06 INR 1.47 (0.83-1.16) H 11/13/16 13:06 Neuro: GIVENS, sens +LT follows commands A+Ox4 dressing :CDI ICD10 Worksheet Patient Problems: Problems Problem Status Onset Fusion of lumbar spine Acute Diabetes Acute H/O cervical spinal arthrodesis Acute Status post spinal arthrodesis Acute
[2016-11-19] MEDS: ENOXAPARIN 40 MG/0.4 ML SYR SC SCH (07:51)
[2016-11-19] MEDS: ACETAMINOPHEN 500 MG TAB PO SCH ×3 (07:53→21:05)
[2016-11-19] MEDS: GABAPENTIN 300 MG CAP PO SCH ×3 (07:55→21:05)
[2016-11-19] MEDS: PANTOPRAZOLE SODIUM 40 MG TAB PO SCH (07:55)
[2016-11-19] MEDS: VENLAFAXINE XR 75 MG CAP PO SCH (07:55)
[2016-11-19] MEDS: ATORVASTATIN CALCIUM 20 MG TAB PO SCH (07:55)
[2016-11-19] MEDS: FAMOTIDINE 20 MG TAB PO SCH ×2 (07:55→19:33)
[2016-11-19] MEDS: AZITHROMYCIN 250 MG TAB PO SCH (07:56)
[2016-11-19] MEDS: CYCLOSPORINE 0.05% 1 EACH BOX EACHEYE SCH ×2 (07:56→19:33)
[2016-11-19] MEDS: ALLOPURINOL 100 MG TAB PO SCH (07:57)
[2016-11-19] MEDS: INSULIN LISPRO 100 UNIT/ML SC SCH ×3 (08:11→18:11)
[2016-11-19] MEDS: POLYETHYLENE GLYCOL 3350 17 GM PKT PO SCH ×3 (08:11→21:06)
[2016-11-19] MEDS: SENNOSIDES/DOCUSATE SODIUM TAB PO SCH ×2 (08:11→21:06)
--- NOTE | 2016-11-19 10:26 | HOSPPROG ---
Hospitalist Progress Note Assessment/Plan: Patient is a 75-year-old female who recently underwent a lumbar procedure. She has been having coughing bouts since surgery. She says that she hurts all over. Today is my 1st encounter with the patient. Chart reviewed. Reviewed her care w Otis Chaparro PA/ w neurosurgery. #. Hypoxemia with associated bronchitis versus pneumonitis - chest x-ray shows predominant interstitial markings - she was requiring 3 L of oxygen today - negative for influenza - being treated with azithromycin -she is feeling much better today #. hyponatremia - mild #. anemia -post op setting #. right hip pain/ significant soft tissue swelling and pain with touch to the gluteus -get a CT to further evaluate/ ?hematoma #. postop day 6. status post a lumbar fusion #. diabetes type 2 - had some hypoglycemia. Her 70 /30 dose has been decreased #. urinary retention -patient says she is unable to void without catheter -once pain improves, a trial should be done #. dvt prophylaxis: LMWH Subjective: Kaci is not having back pain but ongoing right hip/ gluteus pain. Objective: Vital Signs Temp Pulse Resp BP Pulse Ox 36.8 C 75 16 113/66 94 11/19/16 07:45 11/19/16 07:45 11/19/16 07:45 11/19/16 07:45 11/19/16 07:45 Microbiology 11/13/16 09:06 Gram Stain - Final Other - Eswab 11/13/16 09:06 Gram Stain - Final Other - Eswab Laboratory Results 11/18/16 16:45 11/18/16 17:30 11/18/16 11/19/16 11/20/16 05:59 05:59 05:59 Intake Total 450 Output Total 1000 1950 Balance -1000 -1500 PT 17.8 SEC (12.0-15.0) H 11/13/16 13:06 INR 1.47 (0.83-1.16) H 11/13/16 13:06 - Physical Exam Constitutional: uncomfortable, No not in pain Eyes: PERRL Ears, Nose, Mouth, Throat: hearing normal Cardiovascular: regular rate and rhythym Respiratory: no respiratory distress Gastrointestinal: normoactive bowel sounds Skin: warm, other (lumbar area w dressing in place/ right hip area and r glutus area with ecchymosis/ slightly firm are palpated on right gluteus) Musculoskeletal: generalized weakness Neurologic: AAOx3 Psychiatric: anxious ICD10 Worksheet Patient Problems: Problems Problem Status Onset Fusion of lumbar spine Acute Diabetes Acute H/O cervical spinal arthrodesis Acute Status post spinal arthrodesis Acute
[2016-11-19] MEDS: INSULIN 70/30 HUMAN 100 UNITS/ML SYR SC SCH ×2 (11:00→21:06)
[2016-11-19] MEDS ORDERED: LOPERAMIDE HCL 1 MG/5 ML UDCUP PO ONE (12:25)
[2016-11-19] MEDS: LIDOCAINE 5% 1 EA PATCH TD SCH (12:49)
[2016-11-19] MEDS ORDERED: IOPAMIDOL (ISOVUE-300) 100 ML BTL IV ONE (16:55)
[2016-11-19] MEDS: DONEPEZIL HCL 5 MG TAB PO SCH (19:33)
[2016-11-19] MEDS ORDERED: PATCH REMOVAL 1 EA PATCH TD SCH (21:00)
[2016-11-19 23:34] VITALS: PULSE 76; RESP 16; O2SAT 96
[2016-11-20] MEDS: METHOCARBAMOL 750 MG TAB PO PRN (03:32)
[2016-11-20] MEDS: ACETAMINOPHEN 500 MG TAB PO SCH ×2 (05:15→14:21)
[2016-11-20 05:43] LABS: ABSOLUTE NRBC COUNT 0.09 10^3/uL (0-0.01); ADD DIFF? YES; ADD MORPH? YES; ADD SCAN? NO; ATYPICAL LYMPHOCYTE FLAG 40 (0-99); FRAGMENT RBC FLAG 0 (0-99); HEMATOCRIT 25.1 % (38.0-47.0); LEFT SHIFT FLG 20 (0-99); LIPEMIA HEMOLYSIS FLAG 80 (0-99); MEAN CELL HEMOGLOBIN 28.8 pg (27.9-34.1); MEAN CELL HEMOGLOBIN CONCENTR. 31.9 g/dL (32.4-36.7); MEAN CELL VOLUME 90.3 fL (81.5-99.8); MEAN PLATELET VOLUME 9.8 fL (8.7-11.7); PLATELET CLUMPS FLAG 0 (0-99); PLATELET COUNT 268 10^3/uL (150-400); RED BLOOD CELL COUNT 2.78 10^6/uL (4.18-5.33); RED CELL DISTRIBUTION WIDTH 14.5 % (11.5-15.2)
[2016-11-20 05:46] LABS: NRBC-AUTO% 1.2 % (0.0-0.2)
[2016-11-20 05:57] LABS: ANION GAP 6 mEq/L (8-16); CALCIUM 8.3 mg/dL (8.5-10.4); CARBON DIOXIDE 30 mEq/l (22-31); CHLORIDE 101 mEq/L (97-110); CREATININE 0.5 mg/dL (0.6-1.0); GLOMERULAR FILTRATION RATE > 60; GLUCOSE 78 mg/dL (70-100); POTASSIUM 3.4 mEq/L (3.5-5.2); SODIUM 137 mEq/L (134-144)
[2016-11-20 06:17] LABS: PLATELET ESTIMATE ADEQUATE (ADEQ)
[2016-11-20 06:19] LABS: HYPOCHROMIA 1+; POLYCHROMASIA 1+
[2016-11-20 07:18] VITALS: BP 124/55; TEMP 98.7
--- NOTE | 2016-11-20 07:22 | SOAPPROG ---
SOAP Progress Note Assessment/Plan: Assessment: 75yo F POD #7 L1-4 fusion with L2/3 TLIF, hardware removal L3-S1 Plan: stable and doing well overall :) PT/OT anemia from blood loss, hg/hct stable, follow for now urinary retention, remove sherman this am DC c4 planner to set up dc to [facility] please call with neuro changes pt seen by Dr Hicks 11/13/16 12:37 11/20/16 07:21 Subjective: continued back pain, no leg pain, no headaches Objective: Vital Signs Temp Pulse Resp BP Pulse Ox 37.1 C 76 16 124/55 H 96 11/20/16 07:18 11/20/16 07:18 11/20/16 07:18 11/20/16 07:18 11/20/16 07:18 Microbiology 11/13/16 09:06 Gram Stain - Final Other - Eswab 11/13/16 09:06 Gram Stain - Final Other - Eswab Laboratory Results 11/20/16 05:22 11/20/16 05:22 11/19/16 11/20/16 11/21/16 05:59 05:59 05:59 Intake Total 450 Output Total 1950 2700 Balance -1500 -2700 PT 17.8 SEC (12.0-15.0) H 11/13/16 13:06 INR 1.47 (0.83-1.16) H 11/13/16 13:06 AAOX4, +FC PERRL, EOMI, no facial droop 5/5 + light touch C/D/I ICD10 Worksheet Patient Problems: Problems Problem Status Onset Fusion of lumbar spine Acute Diabetes Acute H/O cervical spinal arthrodesis Acute Status post spinal arthrodesis Acute - ICD10 Problem Qualifiers (1) Fusion of lumbar spine
[2016-11-20] MEDS: INSULIN LISPRO 100 UNIT/ML SC SCH ×2 (07:29→12:13)
[2016-11-20] MEDS: GABAPENTIN 300 MG CAP PO SCH ×2 (08:50→16:10)
[2016-11-20] MEDS: VENLAFAXINE XR 75 MG CAP PO SCH (08:50)
[2016-11-20] MEDS: SENNOSIDES/DOCUSATE SODIUM TAB PO SCH (08:50)
[2016-11-20] MEDS: AZITHROMYCIN 250 MG TAB PO SCH (08:50)
[2016-11-20] MEDS: PANTOPRAZOLE SODIUM 40 MG TAB PO SCH (08:50)
[2016-11-20] MEDS: FAMOTIDINE 20 MG TAB PO SCH (08:50)
[2016-11-20] MEDS: ALLOPURINOL 100 MG TAB PO SCH (08:50)
[2016-11-20] MEDS: ATORVASTATIN CALCIUM 20 MG TAB PO SCH (08:50)
[2016-11-20] MEDS: ENOXAPARIN 40 MG/0.4 ML SYR SC SCH (08:50)
[2016-11-20] MEDS: LIDOCAINE 5% 1 EA PATCH TD SCH (08:51)
[2016-11-20] MEDS: INSULIN 70/30 HUMAN 100 UNITS/ML SYR SC SCH (08:57)
[2016-11-20] MEDS: POLYETHYLENE GLYCOL 3350 17 GM PKT PO SCH (09:00)
[2016-11-20] MEDS: CYCLOSPORINE 0.05% 1 EACH BOX EACHEYE SCH (09:44)
[2016-11-20] MEDS ORDERED: LIDOCAINE 1% 5 ML SDV ONE (13:58)
[2016-11-20] MEDS ORDERED: TRIAMCINOLONE ACETONIDE 40 MG/ML VIAL MISC ONE (14:00)
--- NOTE | 2016-11-20 14:44 | PDIAF ---
- Diagnosis Code Status: Full Code - Medication Management Discharge Medications: Medications to Continue on Transfer Albuterol [Proventil Inhaler HFA (*)] 1 puffs IH DAILY PRN 09/22/16 [Last Taken 11/13/16 07:50] Allopurinol [Allopurinol 100 MG (*)] 100 mg PO DAILY 09/22/16 [Last Taken 05:00] Atorvastatin Calcium [Lipitor 20 mg (*)] 20 mg PO DAILY 09/22/16 [Last Taken 06/14] Donepezil HCl [Aricept 5 MG (*)] 10 mg PO HS 09/22/16 [Last Taken 11/12/16] Fluticasone Nasal [Flonase Nasal [place]] 2 sprays NASAL DAILY PRN 09/22/16 [Last Taken 11/13/16 05:00] Gabapentin [Neurontin 300 MG (*)] 600 mg PO TID 09/22/16 [Last Taken 11/12/16] Herbals/Supplements -Info Only 1 ea PO DAILY 09/22/16 [Last Taken 10/30/16] Insulin 70/30 Human [Novolin 70/30 (*)] 30 unit SC BID 09/22/16 [Last Taken 05:00] Insulin Aspart Novolog 70/30 [Novolog Mix 70/30 (*)] 0 units SC TIDMEAL [Last Taken 11/12/16] Multivitamins [Multivitamin (*)] 1 each PO DAILY 09/22/16 [Last Taken 10/30/16] Omeprazole [Prilosec 20 mg] 40 mg PO DAILY 09/22/16 [Last Taken 11/12/16] Venlafaxine Xr [Effexor Xr 75MG (*)] 75 mg PO DAILY 09/22/16 [Last Taken ] Vitamin B Complex [B Complex] 1 each PO DAILY 09/22/16 [Last Taken 10/30/16] cycloSPORINE 0.05% [Restasis Opht Drops(*)] 1 drop EACHEYE BID 09/22/16 [Last Taken 11/13/16 05:00] Acetaminophen [Tylenol ES 500 mg (*)] 1,000 mg PO Q8HRS #0 tab 11/20/16 [Last Taken Unknown] Enoxaparin [Lovenox 40 MG (*)] 40 mg SC DAILY #0 syr 11/20/16 [Last Taken Unknown] Lidocaine 5% [Lidoderm 5% Patch (*)] 2 ea TD DAILY #0 patch 11/20/16 [Last Taken Unknown] Discharge Medications: Refer to the Discharge Home Medication list for PRN reason. - Orders Services needed: Registered Nurse, Physical Therapy, Occupational Therapy Diet Recommendation: no restrictions on diet Diet Texture: Regular Texture Diet Equipment: LSO brace when out of bed - Follow Up Care Current Providers and Referrals: LUISANA CALDERA [Primary Care Provider] - Trae Lozano MD [Medical Doctor] - (2-3 weeks, call for appt)
--- NOTE | 2016-11-20 14:45 | HOSPPROG ---
Hospitalist Progress Note Assessment/Plan: Patient is a 75-year-old female who recently underwent a lumbar procedure. She has been having coughing bouts since surgery. She says that she hurts all over. Today is my 1st encounter with the patient. #. Hypoxemia with associated bronchitis versus pneumonitis - chest x-ray shows predominant interstitial markings - she was requiring 3 L of oxygen today - negative for influenza - being treated with azithromycin -she is feeling much better today #. hyponatremia - resolved #. anemia -post op setting #. right hip pain/ significant soft tissue swelling and pain with touch to the gluteus -CT scan showed nothing acute #. postop day 7. status post a lumbar fusion #. diabetes type 2 - had some hypoglycemia. Her 70 /30 dose has been decreased #. urinary retention -sherman to be removed today #. dvt prophylaxis: LMWH Subjective: Paige is feeling better today/ she is worried about rehab. Objective: Vital Signs Temp Pulse Resp BP Pulse Ox 37.1 C 76 16 124/55 H 96 11/20/16 07:18 11/20/16 07:18 11/20/16 07:18 11/20/16 07:18 11/20/16 07:18 Microbiology 11/13/16 09:06 Gram Stain - Final Other - Eswab 11/13/16 09:06 Gram Stain - Final Other - Eswab Laboratory Results 11/20/16 05:22 11/20/16 05:22 11/19/16 11/20/16 11/21/16 05:59 05:59 05:59 Intake Total 450 Output Total 1950 2700 500 Balance -1500 -2700 -500 PT 17.8 SEC (12.0-15.0) H 11/13/16 13:06 INR 1.47 (0.83-1.16) H 11/13/16 13:06 - Physical Exam Constitutional: chronically ill appearing, uncomfortable Eyes: PERRL Ears, Nose, Mouth, Throat: hearing normal Cardiovascular: regular rate and rhythym Respiratory: no respiratory distress, reduced air movement, rhonchi (few scattered) Gastrointestinal: normoactive bowel sounds Skin: warm, No normal color (pale) Neurologic: AAOx3 Psychiatric: anxious ICD10 Worksheet Patient Problems: Problems Problem Status Onset Fusion of lumbar spine Acute Diabetes Acute H/O cervical spinal arthrodesis Acute Status post spinal arthrodesis Acute
--- NOTE | 2016-11-20 14:52 | GCON ---
ORTHOPEDIC CONSULT CHIEF COMPLAINT: Right hip pain. HISTORY OF PRESENT ILLNESS: This is a 75-year-old woman status post lumbar fusion by Dr. Ania umana. Consult from his Abhay PA, requesting that we evaluate her hip. The patient states worsening right lateral hip pain since surgery a couple days ago. PAST MEDICAL HISTORY: Please see H and P by hospitalist. MEDICATIONS: Home medications include Aricept, gabapentin, omeprazole, Effexor, albuterol, cyclospo rin, NovoLog, fluticasone, insulin, allopurinol. ALLERGIES: Codeine, doxycycline, erythromycin, fentanyl, nystatin, quinine, tetracycline. FAMILY HISTORY: Diabetes. SOCIAL HISTORY: She quit drinking about 20 years ago. She quit smoking in her 30s. REVIEW OF SYSTEMS: Pertinent information under HPI, per myself. PHYSICAL EXAMINATION: GENERAL: Patient is in mild distress lying on her back. Appears mildly unco mfortable. Otherwise, in no acute distress. EXTREMITIES: Full range of motion of the right hip. She is tender to palpation over her right greater trochanter. She does have mild ecchymosis over th is area. No pain with axial loading of the hip. Internal/external rotation is full. Mild lateral pain with internal rotation but no pain in the groin. IMAGING: CT was reviewed by myself and Dr. Hood, which showed mild hip osteoarthritis and mild hip bursitis. IMPRESSION: A 75-year-old female with hip bursitis and mild hip osteoarthritis. 1. Hip osteoarthritis, mild. No pain on exam in the groin, so I think this is mild. Follow up out patient if she would like. 2. Hip bursitis. Discussed options of physical therapy, stretching and a hip bursitis injection of steroid and lidocaine. The patient would like to proceed with a greater trochanteric bursa injecti on. The patient gave verbal consent. The patient used sterile technique to clean the skin with alc ohol wipes. Used 3 mL of 1% lidocaine and 40 mg of Kenalog injected into right hip bursa. Patient tolerated the procedure well. Patient may follow up outpatient with us as needed in 2-3 months, ear lier if pain worsens. PROCEDURE: Right greater trochanteric bursa steroid injection. Patient was discussed with Dr. Hood. He agrees with the assessment and plan. He reviewed the CT. /[id number]/MODL
== END 2016-11-20 17:04 | DRG 460 ==
LOC: F3N 11-13 06:34 → F2N 11-13 13:45 → F3N 11-14 17:46
PROVIDERS: ADMIT Neurological Surgery; ATTEND Neurological Surgery
PROC: 0SP004Z Removal of Internal Fixation Device from Lumbar Vertebral Joint, Open Approach (ICD-10-PCS; principal; 2016-11-13 08:15)
PROC: 8E0WXBZ Computer Assisted Procedure of Trunk Region (ICD-10-PCS; principal; 2016-11-13 08:15)
PROC: 00Q20ZZ Repair Dura Mater, Open Approach (ICD-10-PCS; principal; 2016-11-13 08:15)
PROC: 00NY0ZZ Release Lumbar Spinal Cord, Open Approach (ICD-10-PCS; principal; 2016-11-13 08:15)
PROC: 01NB0ZZ Release Lumbar Nerve, Open Approach (ICD-10-PCS; principal; 2016-11-13 08:15)
PROC: 0SG10AJ Fusion of 2 or more Lumbar Vertebral Joints with Interbody Fusion Device, Posterior Approach, Anterior Column, Open Approach (ICD-10-PCS; principal; 2016-11-13 08:15)
PROC: 4A1004G Monitoring of Central Nervous Electrical Activity, Intraoperative, Open Approach (ICD-10-PCS; principal; 2016-11-13 08:15)
PROC: 30233L1 Transfusion of Nonautologous Fresh Plasma into Peripheral Vein, Percutaneous Approach (ICD-10-PCS; 2016-11-13 08:15)
PROC: 30233N1 Transfusion of Nonautologous Red Blood Cells into Peripheral Vein, Percutaneous Approach (ICD-10-PCS; 2016-11-13 08:15)
DX: M51.36 Other intervertebral disc degeneration, lumbar region (principal); G96.0 Cerebrospinal fluid leak; M48.06 Spinal stenosis, lumbar region; M54.16 Radiculopathy, lumbar region; E11.9 Type 2 diabetes mellitus without complications; M16.11 Unilateral primary osteoarthritis, right hip; M70.71 Other bursitis of hip, right hip; E86.1 Hypovolemia; R33.9 Retention of urine, unspecified; D64.9 Anemia, unspecified; R05 Cough; R91.8 Other nonspecific abnormal finding of lung field; I10 Essential (primary) hypertension; J45.909 Unspecified asthma, uncomplicated; K21.9 Gastro-esophageal reflux disease without esophagitis; Z79.4 Long term (current) use of insulin
CPT/HCPCS: 97116-GP; 97161-GP; 97165-GO; 97530-GO; 97530-GP; 97532-GO; 97535-GO; C1713; C1762; G8978-GP-CL; G8979-GP-CJ; G8987-GO-CL; G8988-GO-CI; J0690; J1100; J1200; J1650; J1815; J2001; J2250; J2270; J2274; J2370; J2405; J2704; J3010; J3301; J7060; P9016; P9017; P9041; Q9967